=== PATIENT | female | born 1995 ===

== ENCOUNTER 2022-08-07 13:10 | Outpatient (CLI) | payer OTHER | END 2022-08-07 14:39 | disposition home or self-care (01) | LOC: MRI 13:10 | DX: G35 Multiple sclerosis (principal); D35.00 Benign neoplasm of unspecified adrenal gland; I67.82 Cerebral ischemia; R42 Dizziness and giddiness; R51.9 Headache, unspecified; R53.81 Other malaise | CPT/HCPCS: 70553 ==

== ENCOUNTER 2024-08-31 12:41 | Outpatient (CLI) | payer OTHER | END 2024-09-01 09:22 | disposition home or self-care (01) | LOC: MRI 12:41 | DX: R51.9 Headache, unspecified (principal) | CPT/HCPCS: 70553 ==